=== PATIENT | male | born 2000 | race Caucasian/White ===

== ENCOUNTER 2024-03-26 09:49 | Inpatient (IN) | payer OTHER, SELFPAY ==
[2024-03-26] VITALS (12 sets, daily range): BP systolic 115–169; BP diastolic 56–83; PULSE 50–98; RESP 12–20; TEMP 36.4–37.1; O2SAT 95–100; BMI 23.0
--- NOTE | ~2024-03-26 | CT_ITS ---
EXAMINATION: CT ABDOMEN PELVIS WITH IV CONTRAST CLINICAL INFORMATION: lower abd pain, nausea, white count COMPARISON: No prior CT available for comparison. TECHNIQUE: Multidetector volumetric imaging was performed from the superior aspect of the liver through the pubic symphysis 85 mL Omnipaque 350 injected Sagittal and coronal reformatted images were obtained on the technologist's workstation. This CT examination was performed using dose optimization techniques as appropriate, variously including the following: *Automated exposure control *Adjustment of mA and/or kV according to patient size (this includes techniques or standardized protocols for targeted exams where dose is matched to indication/reason for exam; i.e. extremities or head) *Use of iterative reconstruction technique DLP: 414 mGy-cm FINDINGS: LOWER THORAX: Included lung bases are clear. HEPATOBILIARY: No focal hepatic lesions. No biliary ductal dilatation. GALLBLADDER: Gallbladder unremarkable. SPLEEN: Spleen is normal in size. PANCREAS: No focal mass or ductal dilatation. STOMACH AND GASTROINTESTINAL TRACT: Stomach is grossly unremarkable. There is no bowel distention or thickening. Appendix is dilated measuring up to 1.8 cm concerning for acute appendicitis. There is likely appendicolith at its neck about 8 mm. ADRENALS: No adrenal nodules. KIDNEYS/URETERS: No hydronephrosis, stones or solid mass lesions. URINARY BLADDER: Partially decompressed. PELVIC VISCERA: Unremarkable PERITONEUM: No free air or fluid. LYMPH NODES: No lymphadenopathy. VASCULAR:Abdominal aorta normal in size, no aneurysm found. BONES, ABDOMINAL WALL AND SOFT TISSUES: Age-appropriate changes of the spine and skeletal system, no destructive osteolytic or osteosclerotic bone lesion found CT/CT abdomen pelvis w IV con IMPRESSION: Enlarged dilated retrocecal appendix measuring up to 1.8 cm with a probably large appendicolith at its neck suggesting ACUTE APPENDICITIS.. No evidence of rupture or periappendiceal fat stranding at this time. URGENT SURGICAL ASSESSMENT, recommended. (Referring physician staff is being called, by physician staff assistance, to be alerted of the above critical findings and recommendations.) 03/26/2024 10:54 AM CDT Electronically signed by: Kortney Suero MD 03/26/2024 11:55 AM EDT
--- NOTE | 2024-03-26 10:16 | ED.ABDPAIN ---
HPI - Abdominal Pain General Chief Complaint: Abdominal Pain Stated Complaint: Abd pain Time Seen by Provider: 03/26/24 10:14 Source: patient Mode of arrival: ambulatory Limitations: no limitations History of Present Illness ED Provider: Obie MARTINEZ HPI narrative: 23-year-old male hx of IBS presents to the emergency department complaints of abdominal pain localized mostly in his umbilical region and right lower quadrant pain started yesterday associated with nausea. Pain has gradually worsened over the last 24 hours. He has not been able to keep anything down he says last time he was last night and when he tried to eat he vomited. Has not been able to keep fluids down either. Pain is severe, 10/10, sharp. He reports he still has his appendix. Also reports he is having less bowel movements than usual however still passing gas. Denies fevers, chills, chest pain, shortness of breath, changes in urinary habits. Related Data Allergies Allergy/AdvReac Type Severity Reaction Status Date / Time Sulfa (Sulfonamide Allergy Unknown Verified 03/26/24 09:56 Antibiotics) Review of Systems Review of Systems Yes all other systems are reviewed and are negative [facility] Past Medical History Attestation statement: The following information was validated with the patient. Source: old records reviewed and nursing notes reviewed Social History Social History Alcohol intake: current Alcohol intake frequency: 0-2 drinks per day Alcohol type: beer Smoked in Last 30 Days: No Use of substances other than those prescribed or required for medical reasons: Yes Substance Use Type: Marijuana Substance Use Frequency: Daily Advance Directives: No Advance Directives Information Provided: Yes Physical Exam ED Vital Signs: Vital Signs - 24 hr 03/26/24 09:54 03/26/24 10:20 03/26/24 10:22 Temperature 97.5 F 98.0 F Pulse Rate 51 98 Respiratory Rate 16 16 18 Blood Pressure 169/82 H 135/83 Pulse Oximetry 100 100 Oxygen Delivery Method Room Air Room Air 03/26/24 12:00 Temperature 98.7 F Pulse Rate 84 Respiratory Rate 18 Blood Pressure 116/72 Pulse Oximetry 98 Oxygen Delivery Method Room Air BMI result Body Mass Index 23.0 vss Appearance: Alert.? Oriented X3.? No acute distress.? Head: Normocephalic, atraumatic, no step-offs or deformities Eyes: Pupils equal, round and reactive to light.? ENT: Pharynx normal.? Neck: Normal inspection.? Neck supple.? CVS: Normal heart rate and rhythm.? Pulses normal.? Respiratory: No respiratory distress.? Breath sounds normal.? Abdomen: Soft and positive McBurney's and Rovsing sign. Evident tenderness to the right lower quadrant w/ rebound. Normoactive bowel sounds Skin: Skin warm and dry.? Normal skin color.? Normal skin turgor.? Extremities: No lower extremity edema.? No calf ttp. 5/5 strength to bilateral upper and lower extremities Back: No midline tenderness, no C-spine tenderness, full range of motion, no CVA tenderness bilaterally Neuro: Oriented X 3.? No motor deficit.? No sensory deficit. CN 2-12 intact Course Reevaluation(s) Reevaluation #1: CBC with leukocytosis and left shift, I am concerned for infection at this time blood cultures, lactic and antibiotics ordered. Will also order IV fluids as patient is not tolerating p.o.. UA without infection Chemistry and CT abdomen pending . Time: 10:30 Reevaluation #2: CT abdomen pelvis with an enlarged dilated retrocecal appendix measuring up to 1.8 cm with large appendicolith at its neck suggesting acute appendicitis. No evidence of rupture periappendiceal fat stranding at this time. Time: 12:00 Reevaluation #3: Patient to be going to the OR for appendectomy Time: 12:49 Medical Decision Making Medical Decision Making [facility] Narrative: 23-year-old male presents with severe lower abdominal pain particularly in the right lower quadrant started yesterday Physical exam Soft and positive McBurney's and Rovsing sign. Evident tenderness to the right lower quadrant w/ rebound. Normoactive bowel sounds History and physical exam concerning for appendicitis versus pancreatitis versus viral illness. Will rule out metabolic derangements. Unlikely, diverticulitis, kidney stone, AAA Plan labs, urine, imaging, pain control Differential Diagnosis Differential Diagnoses: The differential diagnosis associated with the presentation includes History and physical exam concerning for appendicitis versus pancreatitis versus viral illness. Will rule out metabolic derangements. Unlikely, diverticulitis, kidney stone, AAA Admission/Observation Consideration of admission/observation: Escalation of care including admission/observation considered Likely Consult Healthcare Provider Management of the patient was discussed with: [employer] Lab Data [facility] Lab Attestation statement: I reviewed the patient's lab results. 03/26/24 10:11 03/26/24 10:11 Labs: Lab Results 03/26/24 03/26/24 03/26/24 Range/Units 10:11 10:42 12:33 WBC 12.8 H (4.8-10.8) X10*3/uL RBC 5.09 (4.60-5.80) X10*6/uL Hgb 16.3 (14.0-18.0) g/dl Hct 43.6 (42.0-52.0) % MCV 85.7 (80.0-98.0) fL MCH 32.0 (27.0-33.0) pg MCHC 37.4 H (31.0-36.0) g/dl RDW 11.7 (11.0-16.0) % Plt Count 288 (160-400) X10*3/uL MPV 9.2 L (9.4-12.4) fL Immature Gran % (Auto) 0.5 H (0.0-0.4) % Neut % (Auto) 88.6 H (45-73) % Lymph % (Auto) 8.3 L (20-40) % [place] % (Auto) 2.4 (2-11) % Eos % (Auto) 0.0 (0-4) % Baso % (Auto) 0.2 (0-2) % Lymph # (Auto) 1.1 L (1.2-4.9) X10*3/uL [place] # (Auto) 0.3 (0.1-1.2) X10*3/uL Eos # (Auto) 0.0 (0.0-0.4) X10*3/uL Baso # (Auto) 0.0 (0.0-0.2) X10*3/uL Abs Immat Gran (auto) 0.06 H (0.00-0.03) X10*3/uL Absolute Neuts (auto) 11.3 H (2.0-8.3) x10*3/uL Absolute Nucleated RBC 0.000 (0.0-0.012) X10*3/uL Nucleated RBC % (auto) 0.0 (0.0-0.2) /100WBC ESR 5 (0-15) MM/HR Sodium 137 (135-145) mmol/L Potassium 3.8 (3.3-5.1) mmol/L Chloride 103 (96-108) mmol/L Carbon Dioxide 19 L (22-29) mmol/L Anion Gap 19 (12-20) BUN 12 (9-16) mg/dL Creatinine 1.08 (0.5-1.4) mg/dL Estim Creat Clear Calc 110.1 Estimated GFR > 60 Random Glucose 153 H (60-115) mg/dL Lactic Acid 6.5 H* 0.8 (0.5-2.0) mmol/L Calcium 10.2 (8.4-10.2) mg/dL C-Reactive Protein 1.10 H (< or = 0.50) mg/dL Lipase 22 (8-78) U/L Urine Color Yellow Urine Appearance Cloudy Urine pH >= 9.0 (5.0-9.0) Ur Specific [place] 1.020 (1.005-1.025) Urine Protein 30 (1+) H (Neg-Trace) mg/dL Urine Glucose (UA) Negative (Negative) mg/dL Urine Ketones 80 (Negative) mg/dL Urine Blood Negative (Negative) Urine Nitrite Negative (Negative) Ur Leukocyte Esterase Negative (Negative) Urine RBC 0-2 (0-2) /HPF Urine WBC 0-5 (0-5) /HPF Ur Squamous Epith Cells 0-2 (0-2) /HPF Urine Bacteria None Seen (None Seen) Hyaline Casts 0-2 (0-2) /LPF Independent Interpretation I performed an independent interpretation of an: CT Scan Radiology Impression Discussion of test interpretation with radiology: I have reviewed the radiologist's reading. Chronic Conditions Denies Medications Administered Discontinued Medications Generic Name Dose Route Start Last Admin Trade Name Freq PRN Reason Stop Dose Admin Sodium Chloride 2,177.25 mls @ 2,177.25 mls/hr 03/26/24 10:30 03/26/24 12:26 Ns 30 ml/kg infuse over 1 hr (2177.25 ml) 03/26/24 11:29 Infused IV Infusion .Q1H STA Piperacillin Sod/Tazobactam 50 mls @ 100 mls/hr 03/26/24 11:00 03/26/24 12:02 Sod 3.375 gm/ Sodium Chloride IV 03/26/24 11:29 Infused ONCE ONE Infusion Iohexol 100 ml 03/26/24 11:14 03/26/24 11:14 Iohexol 350 Mg/Ml 100 Ml Infus..Btl IV 03/26/24 11:15 85 ml ONCE ONE Administration Morphine Sulfate 4 mg 03/26/24 10:25 03/26/24 10:51 Morphine Sulfate 4 Mg/Ml Cartridge IVPUSH 03/26/24 10:26 4 mg ONCE ONE Administration Protocol Ondansetron HCl 4 mg 03/26/24 10:25 03/26/24 10:51 Ondansetron Hcl 4 Mg/2 Ml Vial IVPUSH 03/26/24 10:26 4 mg ONCE ONE Administration Critical Care Time Critical Care Time Critical Care Time: Yes Total Critical Care Time: 45 Attestation: I attest to this time spent taking care of the patient, obtaining history, physical, reviewing labs, imaging, treatment of patients condition +/- specialist/hospitalist consult Discharge Plan Discharge Clinical Impression: Nausea, Acidosis, lactic, Retrocecal appendicitis Patient Disposition: Still a Patient Print Language: [place]
[2024-03-26 10:17] LABS: MANUAL DIFF FLAG NO
[2024-03-26 10:18] LABS: Basophils Percent Auto 0.2 % (0-2); Hematocrit 43.6 % (42.0-52.0); Hemoglobin 16.3 g/dl (14.0-18.0); Imm Gran Abs Auto 0.06 X10*3/uL (0.00-0.03); Imm Gran Pct Auto 0.5 % (0.0-0.4); Lymphocytes Absolute Auto 1.1 X10*3/uL (1.2-4.9); Lymphocytes Percent Auto 8.3 % (20-40); Mean Corpuscular HGB Conc 37.4 g/dl (31.0-36.0); Mean Corpuscular Volume 85.7 fL (80.0-98.0); Mean Platelet Volume 9.2 fL (9.4-12.4); Monocytes Absolute Auto 0.3 X10*3/uL (0.1-1.2); Monocytes Percent Auto 2.4 % (2-11); Neutrophils Absolute Auto 11.3 x10*3/uL (2.0-8.3); Neutrophils Percent Auto 88.6 % (45-73); Platelet Count 288 X10*3/uL (160-400); Red Blood Count 5.09 X10*6/uL (4.60-5.80); Red Cell Distribution Width 11.7 % (11.0-16.0); White Blood Count 12.8 X10*3/uL (4.8-10.8)
[2024-03-26 10:20] LABS: Appearance Urine Cloudy; Color Urine Yellow; Glucose Urine UA Negative (Negative); Leukocyte Esterase Urine Negative (Negative); Nitrite Urine Negative (Negative); PH >= 9.0 (5.0-9.0); UMIC TRIGGER UACC YES; Urine Blood Negative (Negative); Urine Ketones 80 mg/dL (Negative); Urine Protein 30 (1+) mg/dL (Neg-Trace)
[2024-03-26 10:26] LABS: Bacteria Urine None Seen (None Seen); Hyaline Casts Urine 0-2 /LPF (0-2); RBC Urine 0-2 /HPF (0-2); Squamous Epithelial Cell Urine 0-2 /HPF (0-2); WBC Urine 0-5 /HPF (0-5)
[2024-03-26 10:35] LABS: Anion Gap 19 (12-20); Blood Urea Nitrogen 12 mg/dL (9-16); Calcium 10.2 mg/dL (8.4-10.2); Carbon Dioxide 19 mmol/L (22-29); Chloride 103 mmol/L (96-108); Creatinine Clr Calc Pharmacy 110.1; Estimated Glomerular Filt Rate > 60; Glucose Random 153 mg/dL (60-115); Potassium 3.8 mmol/L (3.3-5.1); Sodium 137 mmol/L (135-145)
[2024-03-26] MEDS: Morphine Sulfate 4 MG/ML CARTRIDGE IVPUSH (10:51)
[2024-03-26] MEDS: ondansetron HCL 4 MG/2 ML VIAL IVPUSH (10:51)
[2024-03-26] MEDS: 0.9 % Sodium Chloride 2,177.25 ML 2177.25 ML IV (10:52)
[2024-03-26 10:53] LABS: Lipase 22 U/L (8-78)
[2024-03-26 10:59] LABS: Lactic Acid 6.5 mmol/L (0.5-2.0)
[2024-03-26] MEDS: iohexoL 350 MG/ML 100 ML INFUS..BTL IV (11:14)
[2024-03-26] MEDS: Piperacillin Sodium/Tazobactam 3.375 GM in 0.9 % Sodium Chloride 50 ML IV ×3 (11:27→23:19)
[2024-03-26 11:31] LABS: Erythrocyte Sedimentation Rate 5 MM/HR (0-15)
--- NOTE | 2024-03-26 12:31 | P.HPGS_ITS ---
History of Present Illness History of Present Illness Date of Service: 03/28/24 Chief complaint: Appendicitis Narrative: Colton Moreno is a 23 year old male here in the ER because of the abdominal pain. He says that this started early yesterday. He states that the pain was mostly in the area of the umbilicus as well as the right lower quadrant. This had worsened overnight. He has had multiple episodes of vomiting. He says he has had no significant oral intake because of this as he is unable to tolerate anything by mouth. He denies any diarrhea He is mother who is a family physician states that he has had a long history of ?GI issues?. She says that he may have IBS and has frequent bowel movements as well as a ?sensitive stomach? since he was a child He has had no surgery in the past Review of Systems Constitutional: Constitutional: Denies chills and Denies fever(s) Cardiovascular: Cardiovascular: Denies chest pain, Denies dyspnea and Denies dyspnea on exertion Respiratory: Respiratory: Denies cough, Denies dyspnea and Denies dyspnea on exertion Gastrointestinal: Gastrointestinal: Denies hematochezia and Denies change in bowel habits Genitourinary: Genitourinary: Denies hematuria and Denies difficulty urinating Musculoskeletal: Musculoskeletal: Denies back pain and Denies limited range of motion Neurologic: Denies focal weakness and Denies convulsions Psychiatric: Psychiatric: Denies depression and Denies mood swings PENDING SALE TO [facility] Social History Social History Household Members: None Housing: Apartment Do you presently have visiting nurse or other home services: No Alcohol intake: current Alcohol intake frequency: 0-2 drinks per day Alcohol type: beer Patient Tobacco Use Status: Current everyday Tobacco user e-Cigarette/Vaping Use: Currently Using Substance Use Type: Marijuana Meds Allergies Allergy/AdvReac Type Severity Reaction Status Date / Time Sulfa (Sulfonamide Allergy Unknown Verified 03/26/24 09:56 Antibiotics) Physical Exam Vital Signs: Vital Signs: Last Vital Signs Temp 98.7 F 03/26/24 12:00 Pulse 84 03/26/24 12:00 Resp 18 03/26/24 12:00 BP 116/72 03/26/24 12:00 Pulse Ox 98 03/26/24 12:00 O2 Del Method Room Air 03/26/24 12:00 BMI result Body Mass Index 23.0 Const: General: comfortable and no acute distress Orientation/consciousness: patient oriented x3 Neck: Neck: Yes no lymphadenopathy Resp: Auscultation: clear to auscultation bilaterally Cardio: Rhythm: regular rhythm GI: Other: Tender on the right lower quadrant with no guarding or rebound Palpation (GI): Soft to palpation, Tenderness to palpation present (GI) and no guarding Neuro: General: patient oriented x3 Results Results Labs: Short CBC 03/26/24 Range/Units 10:11 WBC 12.8 H (4.8-10.8) X10*3/uL Hgb 16.3 (14.0-18.0) g/dl Hct 43.6 (42.0-52.0) % Plt Count 288 (160-400) X10*3/uL BMP 03/26/24 10:11 Sodium 137 Potassium 3.8 Chloride 103 Carbon Dioxide 19 L BUN 12 Creatinine 1.08 Calcium 10.2 Urine 03/26/24 Range/Units 10:11 Urine Color Yellow Urine Appearance Cloudy Urine pH >= 9.0 (5.0-9.0) Ur Specific [place] 1.020 (1.005-1.025) Urine Protein 30 (1+) H (Neg-Trace) mg/dL Urine Glucose (UA) Negative (Negative) mg/dL Abdomen CT scan report/results: report reviewed and image reviewed CT scan - pelvis: report reviewed and image reviewed Additional studies: Laboratory Results WBC 12.8 X10*3/uL (4.8-10.8) H 03/26/24 10:11 RBC 5.09 X10*6/uL (4.60-5.80) 03/26/24 10:11 Hgb 16.3 g/dl (14.0-18.0) 03/26/24 10:11 Hct 43.6 % (42.0-52.0) 03/26/24 10:11 MCV 85.7 fL (80.0-98.0) 03/26/24 10:11 MCH 32.0 pg (27.0-33.0) 03/26/24 10:11 MCHC 37.4 g/dl (31.0-36.0) H 03/26/24 10:11 RDW 11.7 % (11.0-16.0) 03/26/24 10:11 Plt Count 288 X10*3/uL (160-400) 03/26/24 10:11 MPV 9.2 fL (9.4-12.4) L 03/26/24 10:11 Immature Gran % (Auto) 0.5 % (0.0-0.4) H 03/26/24 10:11 Neut % (Auto) 88.6 % (45-73) H 03/26/24 10:11 Lymph % (Auto) 8.3 % (20-40) L 03/26/24 10:11 [place] % (Auto) 2.4 % (2-11) 03/26/24 10:11 Eos % (Auto) 0.0 % (0-4) 03/26/24 10:11 Baso % (Auto) 0.2 % (0-2) 03/26/24 10:11 Lymph # (Auto) 1.1 X10*3/uL (1.2-4.9) L 03/26/24 10:11 [place] # (Auto) 0.3 X10*3/uL (0.1-1.2) 03/26/24 10:11 Eos # (Auto) 0.0 X10*3/uL (0.0-0.4) 03/26/24 10:11 Baso # (Auto) 0.0 X10*3/uL (0.0-0.2) 03/26/24 10:11 Abs Immat Gran (auto) 0.06 X10*3/uL (0.00-0.03) H 03/26/24 10:11 Absolute Neuts (auto) 11.3 x10*3/uL (2.0-8.3) H 03/26/24 10:11 Absolute Nucleated RBC 0.000 X10*3/uL (0.0-0.012) 03/26/24 10:11 Nucleated RBC % (auto) 0.0 /100WBC (0.0-0.2) 03/26/24 10:11 ESR 5 MM/HR (0-15) 03/26/24 10:11 Sodium 137 mmol/L (135-145) 03/26/24 10:11 Potassium 3.8 mmol/L (3.3-5.1) 03/26/24 10:11 Chloride 103 mmol/L (96-108) 03/26/24 10:11 Carbon Dioxide 19 mmol/L (22-29) L 03/26/24 10:11 Anion Gap 19 (12-20) 03/26/24 10:11 BUN 12 mg/dL (9-16) 03/26/24 10:11 Creatinine 1.08 mg/dL (0.5-1.4) 03/26/24 10:11 Estim Creat Clear Calc 110.1 03/26/24 10:11 Estimated GFR > 60 03/26/24 10:11 Random Glucose 153 mg/dL (60-115) H 03/26/24 10:11 Lactic Acid 6.5 mmol/L (0.5-2.0) H* 03/26/24 10:42 Calcium 10.2 mg/dL (8.4-10.2) 03/26/24 10:11 C-Reactive Protein 1.10 mg/dL (< or = 0.50) H 03/26/24 10:11 Lipase 22 U/L (8-78) 03/26/24 10:11 Urine Color Yellow 03/26/24 10:11 Urine Appearance Cloudy 03/26/24 10:11 Urine pH >= 9.0 (5.0-9.0) 03/26/24 10:11 Ur Specific [place] 1.020 (1.005-1.025) 03/26/24 10:11 Urine Protein 30 (1+) mg/dL (Neg-Trace) H 03/26/24 10:11 Urine Glucose (UA) Negative mg/dL (Negative) 03/26/24 10:11 Urine Ketones 80 mg/dL (Negative) 03/26/24 10:11 Urine Blood Negative (Negative) 03/26/24 10:11 Urine Nitrite Negative (Negative) 03/26/24 10:11 Ur Leukocyte Esterase Negative (Negative) 03/26/24 10:11 Urine RBC 0-2 /HPF (0-2) 03/26/24 10:11 Urine WBC 0-5 /HPF (0-5) 03/26/24 10:11 Ur Squamous Epith Cells 0-2 /HPF (0-2) 03/26/24 10:11 Urine Bacteria None Seen (None Seen) 03/26/24 10:11 Hyaline Casts 0-2 /LPF (0-2) 03/26/24 10:11 Impressions Abdomen/Pelvis CT 03/26/24 11:18 IMPRESSION: Enlarged dilated retrocecal appendix measuring up to 1.8 cm with a probably large appendicolith at its neck suggesting ACUTE APPENDICITIS.. No evidence of rupture or periappendiceal fat stranding at this time. URGENT SURGICAL ASSESSMENT, recommended. (Referring physician staff is being called, by physician staff assistance, to be alerted of the above critical findings and recommendations.) 03/26/2024 10:54 AM CDT Electronically signed by: Kortney Suero MD 03/26/2024 11:55 AM EDT RP Assessment and Plan (1) Retrocecal appendicitis: Status: Acute He has had right lower quadrant pain and tenderness along with vomiting. I have reviewed his CAT scan images with the radiologist. His findings are suggestive of acute appendicitis with a very dilated appendix, and wall, along with a an appendicolith. The appendix may be retrocecal. I therefore explained to the patient that may be best to proceed with laparoscopic appendectomy and possible open appendectomy. I reviewed the risks including but not limited to bleeding, infections, injury to other organs including bowel, and the urinary tract, blood clots, pneumonia, staple line leak, as well as the benefits and alternatives. I reviewed the above as well with his mother Swati who is a family physician The patient was given consent The patient had elevated lactate likely from dehydration and this has normalized after IV fluids. Quality Stroke Does the patient have a stroke diagnosis?: No VTE Prior VTE?: No VTE Risk Level:: Medical - low VTE Device Contraindication: Treatment Not Indicated VTE Drug Contraindication: Treatment Not Indicated Procedures Date of Service Date of Service: 03/28/24
[2024-03-26 12:47] LABS: Lactic Acid 0.8 mmol/L (0.5-2.0)
[2024-03-26 12:49] LABS: Reflex Lactate? Lactic Acid Added
--- NOTE | 2024-03-26 13:12 | P.CONAN_ITS ---
HPI - Anesthesia Eval Consult details Narrative: Acute appendicitis PMFSH Active Problems Active Problems: All Active Problems Retrocecal appendicitis (Acute) Acidosis, lactic (Acute) Nausea (Acute) Family History Family history of problems with anesthesia: No Surgical History History of Problems with Anesthesia: No Social History Social History Alcohol intake: current Alcohol intake frequency: 0-2 drinks per day Alcohol type: beer Smoked in Last 30 Days: No Use of substances other than those prescribed or required for medical reasons: Yes Substance Use Type: Marijuana Substance Use Frequency: Daily Advance Directives: No Advance Directives Information Provided: Yes Meds Allergies Allergy/AdvReac Type Severity Reaction Status Date / Time Sulfa (Sulfonamide Allergy Unknown Verified 03/26/24 09:56 Antibiotics) Active Medications: Current Medications Acetaminophen (Acetaminophen 325 Mg Tablet) 650 mg PO Q6H PRN PRN Reason: Pain, Mild (Pain Scale 1-3), fever or headache Calcium Carbonate (Calcium Carbonate 750 Mg Tab.Chew) 750 mg PO Q4H PRN PRN Reason: Heartburn Lactated Ringer's (Lr) 1,000 mls @ 100 mls/hr IVCONT .Q10H EILEEN Piperacillin Sod/Tazobactam (Sod 3.375 gm/ Sodium Chloride) 50 mls @ 100 mls/hr IV Q6H EILEEN Magnesium Hydroxide (Milk Of Magnesia 30 Ml Oral.Susp) 30 ml PO DAILY PRN PRN Reason: Constipation Melatonin (Melatonin 3 Mg Tablet) 6 mg PO BEDTIME PRN PRN Reason: Insomnia Sodium Chloride (0.9 % Sodium Chloride Flush 3 Ml Syringe) 3 ml IVFLUSH QSHIFT IELEEN Exam Height,Weight and Vital Signs: Height 5 ft 10 in Weight 72.575 kg Last Vital Signs Temp 98.8 F 03/26/24 12:56 Pulse 50 03/26/24 12:56 Resp 12 03/26/24 12:56 BP 118/73 03/26/24 12:56 Pulse Ox 98 03/26/24 12:56 O2 Del Method Room Air 03/26/24 12:56 Pertinent Lab Results Pertinent Lab Results: Laboratory Tests 03/26/24 03/26/24 03/26/24 10:11 10:42 12:33 WBC 12.8 H RBC 5.09 Hgb 16.3 Hct 43.6 MCV 85.7 MCH 32.0 MCHC 37.4 H RDW 11.7 Plt Count 288 MPV 9.2 L Immature Gran % (Auto) 0.5 H Neut % (Auto) 88.6 H Lymph % (Auto) 8.3 L [place] % (Auto) 2.4 Eos % (Auto) 0.0 Baso % (Auto) 0.2 Lymph # (Auto) 1.1 L [place] # (Auto) 0.3 Eos # (Auto) 0.0 Baso # (Auto) 0.0 Abs Immat Gran (auto) 0.06 H Absolute Neuts (auto) 11.3 H Absolute Nucleated RBC 0.000 Nucleated RBC % (auto) 0.0 ESR 5 Sodium 137 Potassium 3.8 Chloride 103 Carbon Dioxide 19 L Anion Gap 19 BUN 12 Creatinine 1.08 Estim Creat Clear Calc 110.1 Estimated GFR > 60 Random Glucose 153 H Lactic Acid 6.5 H* 0.8 Calcium 10.2 C-Reactive Protein 1.10 H Lipase 22 Urine Color Yellow Urine Appearance Cloudy Urine pH >= 9.0 Ur Specific [place] 1.020 Urine Protein 30 (1+) H Urine Glucose (UA) Negative Urine Ketones 80 Urine Blood Negative Urine Nitrite Negative Ur Leukocyte Esterase Negative Urine RBC 0-2 Urine WBC 0-5 Ur Squamous Epith Cells 0-2 Urine Bacteria None Seen Hyaline Casts 0-2 Airway Mallampati Class: I TM Dist: >3cm Neck ROM: Full Loose/Missing/Broken Teeth: No Heart: RRR Lungs: CTA Assessment and Plan Assessment Anesthesia Assessment: Anesthesia Plan Discussed and Chart Reviewed Final Anesthetic Review Family History of Problems with Anesthesia: No History of Problems with Anesthesia: No NPO: Yes ASA Class: I and Emergency Final Preanesthetic Review: No Changes in Pt Med Stat, Meds/Allgs Chart Reviewed, Consent Obtained/Reviewed and Anes Risks/Benef Reviewed Patient Risk: Low Procedure Risk: Intermediate Anesthetic Plan Anesthetic Plan: GA Disposition: Standard PACU
[2024-03-26] MEDS: Lactated Ringers 1,000 ML 100 ML IVCONT ×2 (13:19→15:44)
--- NOTE | 2024-03-26 13:44 | PC.NURSE ---
Report given to SSS
[2024-03-26 13:54] LABS: ~Lactic Acid-LAB USE ONLY 0.8 mmol/L (0.5-2.0)
--- NOTE | 2024-03-26 14:45 | P.OP_ITS ---
Operative Note Operative Note Date of Service: 03/26/24 Narrative: Preop diagnosis: Acute appendicitis Postop diagnosis: Acute appendicitis, with markedly edematous, dilated and erythematous appendix with small amount of murky free fluid in the pelvis Procedure: Laparoscopic appendectomy Surgeon: Artemio Wetzel MD The patient is a 23-year-old male with note of umbilical and right lower quadrant pain and tenderness. His CAT scan discussed with the radiologist showed a very distended appendix, with appendicoliths, thickening of the wall consistent with acute appendicitis. I explained to the patient that it may be best to proceed with the appendectomy. I explained the technique of laparoscopic appendectomy. I reviewed the risks, benefits, and alternatives. He had given consent. His mother was involved with the discussion. He was brought to the operating room. He was placed in supine position under general anesthesia via endotracheal tube. A Goff catheter was inserted. The abdomen was prepped and draped in the usual sterile fashion. A surgical time- out was done. The patient was on scheduled IV antibiotics I made a short incision on the infraumbilical margin using blade 15. This was carried down through the full-thickness of the skin subcutaneous fat. The fascia was visualized.. The peritoneum was entered. Through this incision a Gu port was introduced. Pneumoperitoneum was introduced to a pressure of 15 mm Hg. From here on the rest of the procedure was done under vision with a 10 mm 0 degree scope. With laparoscopic visualization I inserted a 5/12 mm port in the left lower quadrant through a small stab incision. A 5 mm port was i ntroduced a via small incision in the suprapubic margin. Graspers were placed through the working ports. The patient was placed in a head down and [id number] position The cecum was easily seen and by following this I was able to visualize the appendix. The appendix was going up in the pelvis superiorly but was not retrocecal. I was able to apply a grasper at the mid part of the appendix and was able to pull this entire appendix and bring this out into the field. The appendix was very distended, erythematous, with small amount of murky free fluid in the pelvis. Findings were consistent with acute appendicitis I applied a grasper at the mid part of the appendix put this on stretch. This expose the base of the appendix which was viable. I used the [place] LigaSure to create a mesenteric window at the base. I then positioned the Endo-JAKI 30 mm stapler across the base of the appendix. This was fired to transect the appendix. I used the LigaSure to serially ligate the attached mesentery. The entire appendix was then completely and was retrieved through an endobag through the umbilical incision. I reinserted all ports and re- insufflated. I examined the staple line and this appeared intact. There was note of good hemostasis. I observed all 4 quadrants. There was no other pathology. There was no evidence of any bowel injury I irrigated the pelvis a little bit and suctioned out the irrigant fluid. I pulled the omentum to the right lower quadrant Once hemostasis was confirmed, I desufflated the port sites. I removed all ports under vision with the laparoscope. The umbilical port was removed last The fascia of the umbilical incision was closed with a [id number] Polysorb 0 stitch. Skin closure was achieved on all incisions using Polysorb 4-0 subcuticular running sutures. All incisions were infiltrated with Marcaine 0.5% for postop analgesia. Dressings were applied. The procedure was completed The patient tolerated the procedure well. There were no immediate complications. Initial and final counts of sponges and instruments were correct. Estimated blood loss was about 20 cc The patient was extubated without difficulty and transferred to the recovery room with stable vital signs.
--- NOTE | 2024-03-26 15:38 | PHA.MEDREC ---
Addendum entered by Kris Holloway [facility] 03/26/24 17:10: MED REC CHECKED BY [facility] Original Note: Pharmacy Consult ? Medication Reconciliation Pharmacy has completed the medication reconciliation.
[2024-03-26] MEDS: Ibuprofen 600 MG TABLET PO (15:55)
--- NOTE | 2024-03-26 16:08 | PM.EVENT ---
Event Note Date of Service: 03/26/24 Event Note: Seen postop Status post laparoscopic appendectomy this afternoon Looks well Appears to have good pain control Stable vital signs Abdomen soft Pain Management Diet as tolerated Mother at bedside Time Spent With Patient Time: Total time managing care of this patient today ____ minutes.
[2024-03-26] MEDS: Morphine Sulfate 2 MG/ML CARTRIDGE IVPUSH (18:24)
[2024-03-26] MEDS: oxyCODONE HCl Immed Release 5 MG TABLET PO (21:10)
[2024-03-27] MEDS: Lactated Ringers 1,000 ML 100 ML IVCONT (01:49)
[2024-03-27 03:04] VITALS: BP 115/58; PULSE 56; RESP 16; TEMP 36.6; O2SAT 100
[2024-03-27] MEDS: Piperacillin Sodium/Tazobactam 3.375 GM in 0.9 % Sodium Chloride 50 ML IV ×2 (05:10→10:50)
[2024-03-27 07:12] VITALS: BP 107/56; PULSE 51; RESP 14; TEMP 36.4; O2SAT 98
[2024-03-27] MEDS: ondansetron HCL 4 MG/2 ML VIAL IVPUSH (07:37)
[2024-03-27] MEDS: oxyCODONE HCl Immed Release 5 MG TABLET PO (07:37)
--- NOTE | 2024-03-27 08:01 | P.PNGS_ITS ---
Subjective Subjective Date of Service: 03/27/24 <Marychuy Goodwin PA-C - Last Filed: 03/27/24 08:04> 03/27/24 <Artemio Wetzel MD - Last Filed: 03/27/24 09:13> Interval history: Feels overall improved, mild incisional pain. Did not eat dinner last night, felt full. Denies nausea. OOB to bathroom. <Marychuy Goodwin PA-C - Last Filed: 03/27/24 08:04> Physical Exam 2 Vital Signs: Vital Signs: Last Vital Signs Temp 97.5 F 03/27/24 07:12 Pulse 51 03/27/24 07:12 Resp 14 03/27/24 07:12 BP 107/56 L 03/27/24 07:12 Pulse Ox 98 03/27/24 07:12 O2 Del Method Room Air 03/27/24 07:12 BMI result Body Mass Index 23.0 <Marychuy Goodwin PA-C - Last Filed: 03/27/24 08:04> Const: General: comfortable, no acute distress and alert <Marychuy Goodwin PA-C - Last Filed: 03/27/24 08:04> Orientation/consciousness: patient oriented x3 <JUAN Watson Last Filed: 03/27/24 08:04> Resp: Effort & Inspection: normal respiratory effort <Marychuy Goodwin PA-C - Last Filed: 03/27/24 08:04> GI: Inspection: No distended and Yes incision (dressings clean and intact) <Marychuy Goodwin PA-C - Last Filed: 03/27/24 08:04> Palpation (GI): Soft to palpation, Tenderness to palpation present (GI) (mild incisional) and no guarding <Marychuy Goodwin PA-C - Last Filed: 03/27/24 08:04> Skin: General skin exam: no rashes or lesions noted <JUAN Watson Last Filed: 03/27/24 08:04> Neuro: General: patient oriented x3 <JUAN Watson Last Filed: 03/27/24 08:04> Objective Data Active Medications Acetaminophen (Acetaminophen 325 Mg Tablet) 650 mg PO Q6H PRN PRN Reason: Pain, Mild (Pain Scale 1-3), fever or headache Calcium Carbonate (Calcium Carbonate 750 Mg Tab.Chew) 750 mg PO Q4H PRN PRN Reason: Heartburn Lactated Ringer's (Lr) 1,000 mls @ 100 mls/hr IVCONT .Q10H [facility] Last Admin: 03/27/24 01:49 Dose: 100 mls/hr Documented By: LARRY Piperacillin Sod/Tazobactam (Sod 3.375 gm/ Sodium Chloride) 50 mls @ 100 mls/hr IV Q6H [facility] Last Infusion: 03/27/24 05:43 Dose: Infused Documented By: LARRY Ibuprofen (Ibuprofen 600 Mg Tablet) 600 mg PO Q6H PRN PRN Reason: Pain, Moderate(Pain Scale 4-6) Last Admin: 03/26/24 15:55 Dose: 600 mg Documented By: SUSANA Magnesium Hydroxide (Milk Of Magnesia 30 Ml Oral.Susp) 30 ml PO DAILY PRN PRN Reason: Constipation Melatonin (Melatonin 3 Mg Tablet) 6 mg PO BEDTIME PRN PRN Reason: Insomnia Morphine Sulfate (Morphine Sulfate 2 Mg/Ml Cartridge) 2 mg IVPUSH Q3H PRN; Protocol PRN Reason: Pain, Severe (Pain Scale 7-10) Last Admin: 03/26/24 18:24 Dose: 2 mg Documented By: SUSANA Naloxone HCl (Naloxone Hcl 0.4 Mg/Ml Vial) 0.04 mg IVPUSH Q5M PRN PRN Reason: Excessive sedation or RR < 8 Ondansetron HCl (Ondansetron Hcl 4 Mg/2 Ml Vial) 4 mg IVPUSH Q8H PRN PRN Reason: Nausea and Vomiting Last Admin: 03/27/24 07:37 Dose: 4 mg Documented By: ED Oxycodone HCl (Oxycodone Hcl Immed Release 5 Mg Tablet) 5 mg PO Q4H PRN PRN Reason: Pain, Moderate(Pain Scale 4-6) Last Admin: 03/27/24 07:37 Dose: 5 mg Documented By: ED Sodium Chloride (0.9 % Sodium Chloride Flush 3 Ml Syringe) 3 ml IVFLUSH [facility] Last Admin: 03/27/24 07:10 Dose: Not Given Documented By: ED Non-Admin Reason: IV Running <Marychuy Goodwin PA-C - Last Filed: 03/27/24 08:04> Labs CBC & Chem 7: 03/26/24 10:11 03/26/24 10:11 <Marychuy Goodwin PA-C - Last Filed: 03/27/24 08:04> Labs: Laboratory Results - last 24 hr 03/26/24 03/26/24 03/26/24 10:11 10:42 12:33 MCV 85.7 MCH 32.0 MCHC 37.4 H RDW 11.7 Plt Count 288 MPV 9.2 L Immature Gran % (Auto) 0.5 H Neut % (Auto) 88.6 H Lymph % (Auto) 8.3 L [place] % (Auto) 2.4 Eos % (Auto) 0.0 Baso % (Auto) 0.2 Lymph # (Auto) 1.1 L [place] # (Auto) 0.3 Eos # (Auto) 0.0 Baso # (Auto) 0.0 Abs Immat Gran (auto) 0.06 H Absolute Neuts (auto) 11.3 H Absolute Nucleated RBC 0.000 Nucleated RBC % (auto) 0.0 ESR 5 Anion Gap 19 Estim Creat Clear Calc 110.1 Estimated GFR > 60 Random Glucose 153 H Lactic Acid 6.5 H* 0.8 Lactic Acid F/U @ 2Hr Calcium 10.2 C-Reactive Protein 1.10 H Lipase 22 Urine Color Yellow Urine Appearance Cloudy Urine pH >= 9.0 Ur Specific [place] 1.020 Urine Protein 30 (1+) H Urine Glucose (UA) Negative Urine Ketones 80 Urine Blood Negative Urine Nitrite Negative Ur Leukocyte Esterase Negative Urine RBC 0-2 Urine WBC 0-5 Ur Squamous Epith Cells 0-2 Urine Bacteria None Seen Hyaline Casts 0-2 03/26/24 13:37 MCV MCH MCHC RDW Plt Count MPV Immature Gran % (Auto) Neut % (Auto) Lymph % (Auto) [place] % (Auto) Eos % (Auto) Baso % (Auto) Lymph # (Auto) [place] # (Auto) Eos # (Auto) Baso # (Auto) Abs Immat Gran (auto) Absolute Neuts (auto) Absolute Nucleated RBC Nucleated RBC % (auto) ESR Anion Gap Estim Creat Clear Calc Estimated GFR Random Glucose Lactic Acid Lactic Acid F/U @ 2Hr 0.8 Calcium C-Reactive Protein Lipase Urine Color Urine Appearance Urine pH Ur Specific [place] Urine Protein Urine Glucose (UA) Urine Ketones Urine Blood Urine Nitrite Ur Leukocyte Esterase Urine RBC Urine WBC Ur Squamous Epith Cells Urine Bacteria Hyaline Casts <Marychuy Goodwin PA-C - Last Filed: 03/27/24 08:04> Procedures Date of Service Date of Service: 03/27/24 <Marychuy Goodwin PA-C - Last Filed: 03/27/24 08:04> 03/27/24 <Artemio Wetzel MD - Last Filed: 03/27/24 09:13> Progress Note: A&P Assessment and plan (1) Retrocecal appendicitis: Status: Acute <Marychuy Goodwin PA-C - Last Filed: 03/27/24 08:04> Assessment and Plan: Feels well this morning Denies nausea Had a little bit of oral intake last night Abdomen is soft and benign Okay to DC home today Instructions reinforced with patient Discussed with his mother who is a physician Follow up instructions given Seen and examined independently <Artemio Wetzel MD - Last Filed: 03/27/24 09:13> (2) S/P laparoscopic appendectomy: Status: Acute <Marychuy Goodwin PA-C - Last Filed: 03/27/24 08:04> Assessment and Plan: POD #1 s/p laparoscopic appendectomy for acute appendicitis, with markedly edematous, dilated and erythematous appendix with small amount of murky free fluid in the pelvis. Doing well post op, pain well controlled. VSS. Abd exam benign with clean dressings. Will reassess later this morning. Home if tolerating solid diet. < Marychuy Goodwin PA-C - Last Filed: 03/27/24 08:04> Time Spent With Patient Time: Total time managing care of this patient today ____ minutes. <Marychuy Goodwin PA-C - Last Filed: 03/27/24 08:04> Quality Stroke Does the patient have a stroke diagnosis?: No <Marychuy Goodwin PA-C - Last Filed: 03/27/24 08:04> VTE Prior VTE?: No <Marychuy Goodwin PA-C - Last Filed: 03/27/24 08:04> VTE Risk Level:: Medical - low <Marychuy Goodwin PA-C - Last Filed: 03/27/24 08:04> VTE Device Contraindication: N/A - Device Ordered <Marychuy Goodwin PA-C - Last Filed: 03/27/24 08:04> VTE Drug Contraindication: Treatment Not Indicated <Marychuy Goodwin PA-C - Last Filed: 03/27/24 08:04>
--- NOTE | 2024-03-27 09:14 | MHC.CM.PN ---
pt dcd home self care
--- NOTE | 2024-03-27 14:00 | PM.DS ---
DS: Providers Provider Date of Service: 03/27/24 Date of admission: 03/26/24 13:13 Date of discharge: 03/27/24 Primary care physician: Eunice Physician Attending physician on admission: Artemio Wetzel Attending physician on discharge: Artemio Wetzel DS: Diagnosis Discharge Diagnosis (1) Retrocecal appendicitis: Status: Acute (2) S/P laparoscopic appendectomy: Status: Acute DS: Summary Hospital Course Hospital Course: HPI AT ADMISSION: Colton Moreno is a 23 year old male here in the ER because of the abdominal pain. He says that this started early yesterday. He states that the pain was mostly in the area of the umbilicus as well as the right lower quadrant. This had worsened overnight. He has had multiple episodes of vomiting. He says he has had no significant oral intake because of this as he is unable to tolerate anything by mouth. He denies any diarrhea. He is mother who is a family physician states that he has had a long history of ?GI issues?. She says that he may have IBS and has frequent bowel movements as well as a ?sensitive stomach? since he was a child. He has had no surgery in the past. CT scan findings are suggestive of acute appendicitis with a very dilated appendix, and wall, along with a an appendicolith. HOSPITAL COURSE: The patient was admitted to the surgical service for further treatment of the acute appendicitis. He elected to proceed with laparoscopic appendectomy. He was added onto the OR schedule for that day. On 03/26/24, a laparoscopic appendectomy was performed by Dr. Wetzel without complication. The patient tolerated the procedure well. He had an uncomplicated recovery course. On POD #1, he felt well and was tolerating a solid diet without nausea or vomiting, had good pain control and was ambulating without difficulty. He was hemodynamically stable. He abdomen was benign with appropriate post op tenderness and clean and intact dressings. He felt ready for discharge. He was discharged to home on 03/27/24 in stable condition. He is to follow up in the office in 2 weeks. Time Attestation Discharge Coordination Time (in mins): 30 Quality: Safe Use of Opioids Does Pt have an Active Cancer Diagnosis on the Problem List?: No Quality: Stroke Does the patient have a stroke diagnosis?: No Physical Exam Vital Signs: Vital Signs: Last Vital Signs Temp 97.5 F 03/27/24 07:12 Pulse 51 03/27/24 07:12 Resp 14 03/27/24 07:12 BP 107/56 L 03/27/24 07:12 Pulse Ox 98 03/27/24 07:12 O2 Del Method Room Air 03/27/24 07:12 BMI result Body Mass Index 23.0 Const: General: comfortable, no acute distress and alert Orientation/consciousness: patient oriented x3 Resp: Effort & Inspection: normal respiratory effort GI: Inspection: No distended and Yes incision (dressings c/d/i) Palpation (GI): Soft to palpation, Tenderness to palpation present (GI) (mild incisional) and no guarding Skin: General skin exam: no rashes or lesions noted Neuro: General: patient oriented x3 DS: Data Data Completed and Pending Pending studies at discharge: Pending at discharge 03/26/24 14:23 Surgical [PTH] Routine Labs on day of discharge: Preliminary micro results at discharge 03/26/24 10:50 Blood Culture - Preliminary Blood - Venous No growth after 24 hours. 03/26/24 10:42 Blood Culture - Preliminary Blood - Venous No growth after 24 hours. Discharge Plan Discharge Anticipated Discharge Date/Time: 03/27/24 16:08 Patient Disposition: Home, Self-Care Discharge Diagnosis: acute appendicitis, s/p laparoscopic appendectomy Referrals: Artemio Wetzel MD [Physician] - 2 Weeks Physician,Unknown J [Primary Care Provider] - 1 Week Discharge Medications: New oxycodone-acetaminophen [Percocet] 5-325 mg tablet 1 tab PO Q4-6H PRN (Reason: pain) Qty: 20 0RF Rx Instructions: Partial Fill upon patient request. ibuprofen 600 mg tablet 600 mg PO Q6H PRN (Reason: pain) Qty: 20 0RF Discharge Orders: Discharge Order (Routine); Ordered 03/27/24 Ordered By: Artemio Wetzel Diet: Advance to usual diet Activity on Discharge: No heavy lifting Stand Alone Forms: Patient Portal Discharge page Print Language: Spanish Activity Restrictions/Additional Instructions: If the incision area is tender, you may apply an ice pack for short intervals (No more than 20 minutes on, followed by at least 20 minutes off). Do not apply heat. Do not use creams, lotions, or topical antibiotics unless instructed to do so by your surgeon. These can cause infection or allergic reaction. No lifting more than 20 lbs Okay to shower after 24 hours Okay to change dressings with gauze or Band-Aid after 24 hours No strenuous activities Call the office for follow-up in 2 weeks - with Dr. Wetzel Call Your Doctor If: -Your temperature exceeds 101.5? F -You experience excessive pain or swelling -You have an unexpected reaction to medication -You have excessive bleeding -You experience continued vomiting/nausea -Your incision begins to separate -Your incision shows signs of infection such as increased redness, swelling, excessive pain, drainage (light blood or clear fluid is normal) or heat Care Plan Goals: Returned to baseline Health Concerns: Postop pain Plan of Treatment: Oral pain meds Assessment: Doing well postop Discharge Date/Time: 03/27/24 11:50
--- NOTE | 2024-03-27 15:00 | HO.POSTANES ---
Post Anesthesia Evaluation Post Anesthesia Evaluation Date of Service: 03/27/24 Vital Signs: Vital Signs Temp Pulse Resp BP Pulse Ox O2 Del Method 03/27/24 07:12 97.5 F 51 14 107/56 L 98 Room Air 03/27/24 03:04 97.9 F 56 16 115/58 L 100 Room Air Anesthesia: General Endotracheal-GETA Mental Status: Awake Pain Control: Satisfactory Nausea/Vomiting: None Hydration: Adequate Anesthesia-Related Issues: No Anes. Related Issues
== END 2024-03-27 11:50 | disposition home or self-care (01) | DRG 399 ==
LOC: HO.ED 10:33 → HO.SSS 13:08 → HO.EDOVER 13:14 → HO.S3 14:22
PROVIDERS: Physician Assistant; Admitting Provider Surgery; Emergency Provider Emergency Medicine; Visit Provider Surgery
PROC: 0DTJ4ZZ Resection of Appendix, Percutaneous Endoscopic Approach (ICD-10-PCS; CPT 44970; principal; 2024-03-26 13:30)
DX: K35.80 Unspecified acute appendicitis (principal); F17.210 Nicotine dependence, cigarettes, uncomplicated; Z71.6 Tobacco abuse counseling
CPT/HCPCS: 44970; 36415; 74177; 80048; 81001; 83605; 83690; 85025; 85652; 86140; 87040; 88304; 99221; 99284; J0330; J1100; J1885; J2250; J2270; J2405; J2543; J2704; J2795; J3010; J7120; Q9967

== ENCOUNTER → 2024-03-26 13:13 | Outpatient (BNV) | payer OTHER, SELFPAY | PROVIDERS: Admitting Provider Surgery; Emergency Provider Emergency Medicine; Visit Provider Surgery | DX: K37 Unspecified appendicitis (principal); Z90.49 Acquired absence of other specified parts of digestive tract | CPT/HCPCS: 44970; 99024; 99222; 99499 ==

== ENCOUNTER 2024-04-13 09:10 | Outpatient (AMB) | payer OTHER, SELFPAY ==
--- NOTE | 2024-04-13 09:14 | MHC.OFFVIS ---
Intake Visit Reasons: s/p appendectomy Intake Note: This patient presents for post-op assessment status post laparoscopic appendectomy. Pt c/o; little bruising. Denies pain. No longer taking rx pain meds. 03/26/24: Abd/pelvis CT Traffic Operator Required: No Accompanied by: Self / Same As Patient Allergies Sulfa (Sulfonamide Antibiotics) Allergy (Verified 04/13/24 09:15) Unknown HPI HPI s/p appendectomy: Details: 23-year-old male here for follow-up after appendectomy. He underwent laparoscopic appendectomy for acute appendicitis last 03/26/2024. He tolerated procedure well. He was discharged on postop day 1. He feels well overall. He denies complaints. [facility] Surgical History History of laparoscopic appendectomy (~03/26/24) Social History Household Members: None Housing: Apartment Do you presently have visiting nurse or other home services: No Alcohol intake: current Alcohol intake frequency: 0-2 drinks per day Alcohol type: beer Patient Tobacco Use Status: Current everyday Tobacco user e-Cigarette/Vaping Use: Currently Using Substance Use Type: Marijuana Review of Systems Const Denies chills and Denies fever(s) Resp Denies cough GI Denies abdominal pain Physical Exam Const Other: Looks well General: comfortable and no acute distress Resp Effort & Inspection: normal respiratory effort GI Other: All incisions clean and dry and well healed Palpation (GI): Soft to palpation, not firm, nontender and no guarding Assessment & Plan Assessment & Plan (1) S/P laparoscopic appendectomy: Code(s): Z90.49 - Acquired absence of other specified parts of digestive tract Category: Surgical Plan: He is doing very well postoperatively. All incisions are well healed. His path report shows acute appendicitis. He was advised to avoid lifting anything more than 20 lb for 1 more week. He can follow up on a p.r.n. basis. Medications: Discontinued ibuprofen Discontinued Reason: Patient no longer taking 600 mg PO Q6H PRN 20 tabs 0RF pain oxycodone-acetaminophen 5-325 mg (Percocet) Partial Fill upon patient request. Discontinued Reason: Patient no longer taking 1 tab PO Q4-6H PRN 20 tabs 0RF pain Coding Level of Care Code Global (53684) Diagnoses S/P laparoscopic appendectomy Z90.49
== END 2024-04-13 09:18 | disposition home or self-care (01) ==
PROVIDERS: Visit Provider Surgery
DX: Z90.49 Acquired absence of other specified parts of digestive tract (principal)
CPT/HCPCS: 99024

== ENCOUNTER → 2024-04-13 09:10 | Outpatient (BNVA) | payer OTHER, SELFPAY | PROVIDERS: Visit Provider Surgery ==